=== PATIENT | female | born 1995 | race Caucasian/White ===

== ENCOUNTER 2022-09-22 13:15 | Outpatient (CLI) | payer BC ==
[2022-09-22 14:25] LABS: HCT - HEMATOCRIT 37.3 % (37.0-47.0); HGB - HEMOGLOBIN 12.8 g/dL (12.0-16.0); MEAN CORPUSCULAR HEMOGLOBIN 31.5 pg (27.0-31.0); MEAN CORPUSCULAR HGB CONC 34.3 g/dL (32.0-36.0); MEAN CORPUSCULAR VOLUME 91.9 fL (81.0-99.0); MEAN PLATELET VOLUME 9.7 fL (7.9-10.8); RED BLOOD COUNT 4.06 10^6/uL (4.20-5.40); RED CELL DISTRIBUTION WIDTH 12.5 % (12.0-15.0); WHITE BLOOD COUNT 9.3 x10^3/uL (4.8-10.8)
== END 2022-09-22 13:16 | disposition home or self-care (01) ==
LOC: LAB 13:15
PROVIDERS: ATTEND Obstetrics & Gynecology
DX: Z34.90 Encounter for supervision of normal pregnancy, unspecified, unspecified trimester (principal); Z36.89 Encounter for other specified antenatal screening
CPT/HCPCS: 36415; 82950; 85027

== ENCOUNTER 2022-11-20 08:00 | Outpatient (CLI) | payer BC | END 2022-11-20 23:59 | disposition home or self-care (01) | LOC: LAB.WC 08:00 | PROVIDERS: ATTEND Obstetrics & Gynecology | DX: Z36.85 Encounter for antenatal screening for Streptococcus B (principal) | CPT/HCPCS: 87797 ==

== ENCOUNTER 2022-12-11 19:44 | Inpatient (IN) | payer BC ==
[2022-12-11] MEDS ORDERED: TRANEXAMIC ACID IN NACL 1,000 MG/100 ML BAG IV PRN (19:58)
[2022-12-11] MEDS ORDERED: lidocaine 1% 20 ML MDV ID PRN (19:58)
[2022-12-11] MEDS ORDERED: SODIUM CHLORIDE FLUSH 0.9% 10 ML SYRINGE IVP PRN (19:58)
[2022-12-11] MEDS ORDERED: METHYLERGONOVINE 0.2 MG/ML VIAL IM PRN (19:58)
[2022-12-11] MEDS ORDERED: miSOPROStoL 200 MCG TABLET BC PRN (19:58)
[2022-12-11] MEDS ORDERED: OXYTOCIN 10 UNIT/ML VIAL IM PRN (19:58)
[2022-12-11] MEDS ORDERED: OXYTOCIN/SODIUM CHLORIDE 500 ML IV PRN (19:58)
[2022-12-11] MEDS ORDERED: CARBOPROST TROMETHAMINE 250 MCG/ML AMP IM PRN (19:58)
[2022-12-11] MEDS ORDERED: LACTATED RINGERS 1,000 ML IV SCH (20:00)
--- NOTE | 2022-12-11 20:47 | HISTORY & PHYSICAL EXAMINATION ---
Admit History - : 1 Parity: 0 Risk/History: positive: None Complications This : positive: None - Mother's Labs Mother's Blood Type: positive: O Mother's RH: positive: Positive GBS: positive: Group B Step Negative Rubella Status: positive: Immune - Other Maternal History Other Maternal History: HPI: 27-year-old at 39 weeks 1 day gestation here for induction of labor. She has good movement. Denies loss of fluid. No GARCIA/BV or RUQP. No vaginal bleeding. Denies nausea and vomiting. Denies urinary urgency or dysuria. All other symptoms reviewed and were negative except per HPI. Course Iodine Allergy LMP: 03/12/2022 JONI by LMP:12/17/2022 Initial U/S:06/18/2022 FINAL JONI:12/17/2022 Pre- Weight:137 BMI: 22.19 Blood type O Rh positive Antibody negative CBC: PLT 286 HCT 41.9 HGB 14.5 RUB:immune VZV: HBsAg- negative HepC- negative RPR/AB-EIA:Negative HIV:non reactive PAP:06/06/22 Normal GC/CT:Negative HSV:denies Genetic testing: Negative QUAD 07/04/2022 Covid:X1 2021 Flu:declined FAS: WNL Placenta: Anterior without previa (somewhat thin 1.7cm) Cord: three-vessel cord ADRIANNE: not mentioned EFW:441g 79.95th percentile 50gm OGCT: 120 3HR GTT: TDAP:09/22/2022 Breast Pump:09/22/2022 Antibody screen: 3rd trimester H/H PLT 3rd trimester HIV GBS: Negative Delivery plan: MOD: IOL at 39 weeks Contraception: Plan on Paragard after placental delivery. PMH Benign left breast lump PSH Denies OB History G1, P0 SH Denies tobacco, alcohol, drugs. Former smoker. Family History Mother: Breast cancer, cervical cancer, diabetes, hypertension, lung cancer, ovarian cancer Maternal grandmother: Breast cancer, cervical cancer, hypertension, lung cancer Maternal grandfather: Stroke Father: Hypertension Allergies Iodine Medications vitamins Physical exam: General: Alert, oriented, no acute distress Head: Normal cephalic atraumatic Eyes: PERRLA, extraocular motions intact. Respiratory: Normal rate of respiration. No accessory muscle use, normal respiratory effort. Cardiovascular: Regular rate and rhythm Abdomen: Gravid, nontender, nondistended Extremities: Normal range of motion Neuro: Oriented x3. Normal movements Psych: Appropriate mood and affect. Normal judgment and insight SVE: Checked in clinic yesterday was fingertip, 30%, -3 FHT: 140 beats per baseline, moderate variability, accelerations present, no decelerations. [place]: Quiescent Plan 27-year-old G1, P0 at 39 weeks 1 day gestation here for induction of labor 1. Induction of labor -Admit to L&D for cervical ripening, admit labs, epidural at patient's request. -Cervical ripening with misoprostol 25 mcg PV 2. 39 weeks gestation
[2022-12-11 21:28] LABS: BASOPHILS # (AUTO) 0.1 10^3/uL (0.0-0.1); BASOPHILS % (AUTO) 0.7 %; EOSINOPHILS # (AUTO) 0.1 10^3/uL (0.0-0.7); EOSINOPHILS % (AUTO) 0.9 %; HCT - HEMATOCRIT 34.4 % (37.0-47.0); HGB - HEMOGLOBIN 11.7 g/dL (12.0-16.0); LYMPHOCYTES # (AUTO) 1.5 10^3/uL (1.5-3.5); LYMPHOCYTES % (AUTO) 18.3 %; MEAN CORPUSCULAR HEMOGLOBIN 29.3 pg (27.0-31.0); MEAN PLATELET VOLUME 11.1 fL (7.9-10.8); MONOCYTES # (AUTO) 0.7 10^3/uL (0.0-1.0); MONOCYTES % (AUTO) 8.1 %; NEUTROPHILS # (AUTO) 5.9 10^3/uL (1.5-6.6); NEUTROPHILS % (AUTO) 69.6 %; PLT - PLATELET COUNT 201 10^3/uL (130-450); RED CELL DISTRIBUTION WIDTH 12.6 % (12.0-15.0); WHITE BLOOD COUNT 8.4 x10^3/uL (4.8-10.8)
[2022-12-11] MEDS: miSOPROStoL 100 MCG TABLET VG SCH (21:48)
[2022-12-12] MEDS ORDERED: SODIUM CHLORIDE FLUSH 0.9% 10 ML SYRINGE IVP SCH (01:00)
[2022-12-12] MEDS: miSOPROStoL 100 MCG TABLET VG SCH ×4 (01:52→21:31)
--- NOTE | 2022-12-12 07:37 | PROVIDER PROGRESS NOTE ---
Labor Progress Note - Uterine Monitoring Uterine Monitoring Mode: positive: External toco Contraction Frequency (min/apart): 1-2 Contraction Intensity: positive: Mild to moderate - Monitoring Monitor Mode: positive: External ultrasound Heart Rate Variability: positive: Moderate (6-25 bmp) Accelerations: positive: Present, 15x15 Decelerations: positive: None Strip Review: positive: Category I - Vaginal Exam Dilation (in cm): 2 Effacement (%): 30 Station: -3 - Labor Progress Note Labor Progress Note/Additional Text: Patient maggie about every 1.5 to 2 minutes, 2 close together for additional dose of misoprostol, so the last dose was held. On exam, she changed from fingertip to 2 cm. We will reevaluate cervix after couple of hours to evaluate for continued change on her own. Briefly discussed Rocha balloon, but this often is expelled around 3 cm and may not stay in very long. And does feel well engaged, so could consider amniotomy if not progressing, although this is somewhat early.
[2022-12-12] MEDS ORDERED: OXYTOCIN/SODIUM CHLORIDE 500 ML IV SCH (10:00)
--- NOTE | 2022-12-12 21:12 | PROVIDER PROGRESS NOTE ---
Labor Progress Note - Uterine Monitoring Uterine Monitoring Mode: positive: External toco Contraction Frequency (min/apart): 4 Contraction Intensity: positive: Mild to moderate Uterine Resting Tone: positive: Soft - Monitoring Monitor Mode: positive: External ultrasound Heart Rate Baseline: 130 Heart Rate Variability: positive: Moderate (6-25 bmp) Accelerations: positive: Present, 15x15 Decelerations: positive: None Strip Review: positive: Category I - Vaginal Exam Dilation (in cm): 4 Effacement (%): 100 Station: -2 Cervical Position: Midposition - Labor Progress Note Labor Progress Note/Additional Text: 27yo at 39.2w admitted for elective IOL - Received 2 doses misoprostol 25mcg bc - Pitocin now at 10mu/m, continue to increase by2 every 30m as cervix has not changed - Cat 1, continue to monitor
[2022-12-12] MEDS ORDERED: ROPIVACAINE 0.2% 200 MG/100 ML BAG EP ONE (23:27)
[2022-12-12] MEDS ORDERED: LIDOCAINE-PF 2% 10 ML AMP SUBQ ONE (23:29)
[2022-12-13] MEDS ORDERED: NALOXONE 0.4 MG/ML VIAL IVP PRN ×2 (00:09→08:26)
[2022-12-13] MEDS ORDERED: ONDANSETRON 4 MG/2 ML VIAL IVP PRN ×3 (00:09→08:25)
[2022-12-13] MEDS ORDERED: METOCLOPRAMIDE 10 MG/2 ML VIAL IVP PRN ×2 (00:09→08:26)
[2022-12-13] MEDS ORDERED: ROPIVACAINE 0.2% 200 MG/100 ML BAG EP PRN ×2 (00:09→08:26)
[2022-12-13] MEDS ORDERED: diphenhydrAMINE INJ 50 MG/ML VIAL IVP PRN ×2 (00:09→08:26)
[2022-12-13] MEDS ORDERED: ePHEDrine 50 MG/ML VIAL IVP PRN ×2 (00:09→08:26)
[2022-12-13] MEDS ORDERED: NALBUPHINE 10 MG/ML AMP IVP PRN ×2 (00:09→08:26)
--- NOTE | 2022-12-13 00:13 | ANESTHESIA ---
Pre-Anesthesia VS, & Labs - Diagnosis labor induction - Procedure epidural for labor Vital Signs: Temp Pulse Resp BP Pulse Ox O2 Flow Rate 36.6 C 79 20 111/80 99 12/12/22 09:00 12/12/22 09:00 12/12/22 09:00 12/12/22 09:00 12/12/22 05:00 Height: 5 ft 6 in Weight (kg): 86.183 kg Body Mass Index: 30.7 BMI Classification: Obese - NPO Other (clears) - Is Patient ?: Yes - Lab Results Current Lab Results: Laboratory Tests 12/11/22 22:46: Blood Type Recheck O POSITIVE 12/11/22 20:55: Blood Type O POSITIVE, Antibody Screen NEGATIVE 12/11/22 20:55: WBC 8.4, RBC 4.00 L, Hgb 11.7 L, Hct 34.4 L, MCV 86.0, MCH 29.3, MCHC 34.0, RDW 12.6, Plt Count 201, MPV 11.1 H, Neut # (Auto) 5.9, Lymph # (Auto) 1.5, [place] # (Auto) 0.7, Eos # (Auto) 0.1, Baso # (Auto) 0.1, Absolute Nucleated RBC 0.00, Nucleated RBC % 0.0 Fish Bones: 12/11/22 20:55 Home Medications and Allergies Active Medications Carboprost Tromethamine (Carboprost Tromethamine 250 Mcg/Ml Amp) 250 mcg IM Q15M PRN PRN Reason: Step 4: Hemorrhage protocol Stop: 12/16/22 20:01 Oxytocin/Sodium Chloride (Pitocin/Sodium Chloride) 500 mls @ 999 mls/hr IV PRN PRN; Protocol PRN Reason: POST- HEMORR PREVENTION Stop: 12/16/22 20:01 Tranexamic Acid (Tranexamic 1,000 Mg/100ml-Nacl) 1,000 mg in 100 mls @ 600 mls/hr IV .ONCE PRN PRN Reason: EBL >1200mL and within 3hr Stop: 12/16/22 20:01 Lactated Ringer's (Lr) 1,000 mls @ 100 mls/hr IV .Q10H TATUM Last Infusion: 12/11/22 22:10 Dose: 0 mls/hr Oxytocin/Sodium Chloride (Pitocin/Sodium Chloride) 500 mls @ 2 mls/hr IV TITR TATUM; Protocol Last Titration: 12/12/22 21:13 Dose: 12 milliunit/min, 12 mls/hr Lidocaine HCl (Lidocaine 1% 20 Ml Mdv) 20 ml ID .ONCE PRN PRN Reason: PERINEAL REPAIR Stop: 12/16/22 20:01 Methylergonovine Maleate (Methylergonovine 0.2 Mg/Ml Vial) 0.2 mg IM .ONCE PRN PRN Reason: Step 2: Hemorrhage protocol Stop: 12/16/22 20:01 Misoprostol (Misoprostol 200 Mcg Tablet) 800 mcg BC .ONCE PRN PRN Reason: Step 3: Hemorrhage protocol Stop: 12/16/22 20:01 Misoprostol (Misoprostol 100 Mcg Tablet) 25 mcg VG Q4HR [facility] Last Admin: 12/12/22 21:31 Dose: Not Given Ondansetron HCl (Ondansetron 4 Mg/2 Ml Vial) 4 mg IVP Q6H PRN PRN Reason: Nausea / Vomiting Oxytocin (Oxytocin 10 Unit/Ml Vial) 10 unit IM .ONCE PRN PRN Reason: Step one: If no IV access Stop: 12/16/22 20:01 Sodium Chloride (Sodium Chloride Flush 0.9% 10 Ml Syringe) 10 ml IVP 0100,0900,1700 TATUM Sodium Chloride (Sodium Chloride Flush 0.9% 10 Ml Syringe) 10 ml IVP PRN PRN PRN Reason: NEEDED PER PROVIDER ORDERS Allergies/Adverse Reactions: Allergies Allergy/AdvReac Type Severity Reaction Status Date / Time iodine Allergy Hives Verified 12/11/22 22:12 Anes History & Medical History - Anesthetic History Anesthesia Complications: reports: No previous complications - Medical History Cardiovascular: reports: None Pulmonary: reports: None Smoking Status: Former smoker History of Cancer?: No - Obstetrical History : 1 Parity: 0 Events: reports: None Complications: reports: None Exam General: Alert, Oriented x3 Dental: WNL Neck Mobility: Normal Mallampati classification: II Thyromental Distance: greater than 6 cm Respiratory: Lungs clear Cardiovascular: Regular rate Plan Anesthesia Type: Epidural Consent for Procedure(s) Verified and Reviewed: Yes Code Status: Attempt Resuscitation ASA classification: 2-Mild systemic disease Is this case an emergency?: No
[2022-12-13] MEDS: ONDANSETRON 4 MG/2 ML VIAL IVP PRN ×2 (00:14→08:22)
[2022-12-13] MEDS: miSOPROStoL 100 MCG TABLET VG SCH (05:33)
[2022-12-13] MEDS ORDERED: OXYTOCIN/SODIUM CHLORIDE 500 ML IV PRN (08:23)
[2022-12-13] MEDS ORDERED: SODIUM CHLORIDE FLUSH 0.9% 10 ML SYRINGE IVP PRN (08:23)
[2022-12-13] MEDS ORDERED: OXYTOCIN 10 UNIT/ML VIAL IM PRN (08:23)
[2022-12-13] MEDS ORDERED: CARBOPROST TROMETHAMINE 250 MCG/ML AMP IM PRN (08:24)
[2022-12-13] MEDS ORDERED: lidocaine 1% 20 ML MDV ID PRN (08:24)
[2022-12-13] MEDS ORDERED: TRANEXAMIC ACID IN NACL 1,000 MG/100 ML BAG IV PRN (08:24)
[2022-12-13] MEDS ORDERED: miSOPROStoL 200 MCG TABLET BC PRN (08:24)
[2022-12-13] MEDS ORDERED: METHYLERGONOVINE 0.2 MG/ML VIAL IM PRN (08:24)
[2022-12-13] MEDS ORDERED: ONDANSETRON 4 MG/2 ML VIAL ONE (08:25)
[2022-12-13] MEDS ORDERED: TRANEXAMIC ACID IN NACL 1,000 MG/100 ML BAG IV ONE (08:28)
[2022-12-13] MEDS ORDERED: CARBOPROST TROMETHAMINE 250 MCG/ML AMP IM ONE (08:28)
[2022-12-13] MEDS ORDERED: METHYLERGONOVINE 0.2 MG/ML VIAL ONE (08:28)
[2022-12-13] MEDS ORDERED: LACTATED RINGERS 1,000 ML ONE (08:30)
[2022-12-13] MEDS ORDERED: LACTATED RINGERS 1,000 ML IV SCH ×2 (09:00→12:00)
[2022-12-13] MEDS ORDERED: OXYTOCIN/SODIUM CHLORIDE 500 ML IV SCH (09:00)
[2022-12-13] MEDS ORDERED: SODIUM CHLORIDE FLUSH 0.9% 10 ML SYRINGE IVP SCH (09:00)
[2022-12-13] MEDS ORDERED: miSOPROStoL 100 MCG TABLET VG SCH (09:00)
[2022-12-13] MEDS ORDERED: HYDROCORTISONE 1% CREAM 28 GM TUBE PR PRN (11:23)
[2022-12-13] MEDS ORDERED: WITCH HAZEL/GLYCERIN 1 PAD TOP PRN (11:23)
--- NOTE | 2022-12-13 11:36 | DELIVERY NOTE ---
Delivery Note - Labor Labor: positive: Augmented by oxytocin - Cervical Ripening Method Cervical Ripening Method: positive: Misoprostil (25mcg x2 VG) - Presentation Presentation: positive: Vertex, LOIDA - right occiput anterior - Nuchal Cord Nuchal Cord: positive: Present (x1, reduced after delivery) - Anesthetic Anesthetic Type: - Amniotic Fluid Description Amniotic Fluid Description: positive: Clear - Vacuum Use Type of Vacuum Cup: positive: Cup: Jim Type (Kiwi Omnicup), Cup: Rigid Vacuum Extraction: positive: Successful Number of pop-offs: 0 - Episiotomy Type Episiotomy Type: positive: None - Laceration Laceration: positive: 2nd degree (right vaginal) - Suture Suture Type: positive: Vicryl Suture Size: positive: 3-0 - Delivery Outcome Delivery Outcome: positive: Livebirth - : positive: Placed in direct skin contact with mother, Bulb syringe, Stimulated, Warmed, [place] used sex: positive: Male - Cord Cord: positive: 3 vessels - Placenta Placenta: positive: Intact, Spontaneous - Estimated Blood Loss Estimated Blood Loss (in cc): 200 - Delivery Comments (Free Text/Narrative) Delivery Comments (Free Text/Narrative): /+2 and maternal pushing with good efforts. Epidural in place. Pushing more than 2 hours and was exhausted from induction process, lack of sleep, and pushing. Head +3 and with pushing. Discussed vacuum assistance and risks and she consented. Vacuum placed on flexion point with care to avoid maternal tissues. Pressure applied and gentle traction with next contraction. Awaited next contraction and delivery of head accomplished with two pulls and co ntractions. No detachments. Vacuum applied for 10 minutes. LOIDA. Shoulders and body then delivered. Nuchal cord x1 reduced. Baby boy placed on mother's abdomen. Pediatrics present. Delayed cord clamping. Fundus firm. Vagina and perineum inspected- second degree vaginal laceration right side repaired with 3- 0 Vicryl in usual fashion. Hemostasis. QBL 200cc. Family bonding at bedside.
[2022-12-13] MEDS: IBUPROFEN 800 MG TABLET PO SCH ×2 (14:44→21:07)
[2022-12-13] MEDS: DOCUSATE SODIUM 100 MG CAPSULE PO SCH (21:08)
[2022-12-13] MEDS: ACETAMINOPHEN 500 MG TABLET PO SCH (21:08)
[2022-12-14] MEDS: IBUPROFEN 800 MG TABLET PO SCH (04:28)
[2022-12-14] MEDS: DOCUSATE SODIUM 100 MG CAPSULE PO SCH (07:57)
[2022-12-14] MEDS: ACETAMINOPHEN 500 MG TABLET PO SCH (07:57)
[2022-12-14 09:49] VITALS: BP 99/61
--- NOTE | 2022-12-14 11:55 | Discharge Plan ---
Discharge Plan Problem Reviewed?: Yes Disposition: Home, Self Care Condition: Good Diet: Regular Activity Restrictions: Activity as Tolerated Shower Restrictions: No Weight Bearing: Full Weight Instruction Topics: Vaginal After Additional Instructions or Follow Up instructions: Follow up with 12/24/22 8306. You may reschedule 2-6 weeks if preferred. No Smoking: If you smoke, Please STOP! Call for help. Follow-up with: Roselia Mg DO [Primary Care Provider] -
--- NOTE | 2022-12-14 13:40 | Labor Flowsheet ---
Labor Flowsheet Datetime Report Generated by CPN: 12/14/2022 13:40 Datetime: 12/14/2022 07:57 VITAL SIGNS NBP Sys/Wendi/Mean (mmHg): 99 : 61 : 70 Pulse: 68 Datetime: 12/14/2022 04:35 SpO2 (%): 99 Datetime: 12/13/2022 16:01 Stage of : Datetime: 12/13/2022 11:01 LaborFlag: Labor Datetime: 12/13/2022 10:54 Vacuum: Off Datetime: 12/13/2022 10:47 Stage 2 Comments: First pull. No pop offs Datetime: 12/13/2022 10:45 Station Vacuum/Forceps Applied: +3 Datetime: 12/13/2022 10:40 STAGE 2 Pushing: Pt States too Tired to Push Datetime: 12/13/2022 10:32 MEDICATIONS Pitocin (milliunits): Increased to @ 22 Datetime: 12/13/2022 10:30 UTERINE ACTIVITY Monitor Mode: External Frequency (min): 2-7 Quality: Mild Duration (sec): 40-80 Pattern: Normal: <= 5 Contractions in 10 Minutes Resting Tone (Palpate): Relaxed ASSESSMENT A Monitor Mode: External US FHR Baseline Rate : 125 FHR Baseline Changes: No Baseline Change Variability: Moderate 6-25 bpm Accelerations: 15X15 Decelerations: None Category: Category I Pushing Position: Pushing with Contractions Pushing Progress: Descent with Pushing Datetime: 12/13/2022 10:00 Contraction Comments: approx. difficult to determine due to maternal habitous. difficult to palpate Datetime: 12/13/2022 08:10 Provider Reviewed Strip: Yes COMMUNICATION Communication: RN at Bedside; Provider at Bedside Communication Comments: Saurav at bedside Datetime: 12/13/2022 08:08 VAGINAL EXAM Dilatation (cm): 10.0 Effacement (%): 100 Station: 0 Exam by: Dr. Richardsoncarlos a Datetime: 12/13/2022 07:00 Pitocin Checklist: At Least 1 Acceleration of 15 bpm x 15 Seconds in 30 Minutes or Adequate Variabi lity; No More than 1 Late Deceleration Occurred in Past 30 Minutes; No More than 2 Variable Decelerat ions > 60 Seconds in Duration and decreasing >60 bpm in 30 minutes; No More than 5 Uterine Contractio ns in 10 Minutes for any 20 Minute Interval; Uterus Palpates Soft between Contractions Datetime: 12/13/2022 06:08 Patient Position/Activity: High Fowlers Datetime: 12/13/2022 04:01 Temperature (C): 36.9 Datetime: 12/13/2022 03:50 MATERNAL ASSESSMENT Nausea/Vomiting: Present Datetime: 12/13/2022 03:01 Respirations: 17 Datetime: 12/13/2022 02:30 Monitor Interventions for UA: [place] Adjusted I/O Interventions: Rocha Cath Inserted Datetime: 12/12/2022 23:42 Epidural Procedure: Test Dose Datetime: 12/12/2022 23:30 Comments: occasional maternal HR tracing Datetime: 12/12/2022 23:27 ANESTHESIA Anesthesia Plans: Epidural Epidural Positioning: Sitting Datetime: 12/12/2022 23:25 Provider Notified (Name): M. Aube, MEDICAL SURGERY NURSE Datetime: 12/12/2022 23:02 PATIENT CARE IV/Blood Work: IV Bolus Started; IV Bolus Given ml @ 999 Datetime: 12/12/2022 22:55 Anesthesia Comments: Pt requesting epidural Datetime: 12/12/2022 22:50 Membrane Status: Ruptured Membranes Ruptured Date/Time: 12/13/2022 22:50 Membranes Rupture Method: Artificial Amniotic Fluid Color: Clear Amniotic Fluid Amount: Moderate Amniotic Fluid Odor: None Vaginal Bleeding: Normal Show Datetime: 12/12/2022 22:38 Vaginal Exam Comments: no change Datetime: 12/12/2022 20:52 Patient Care Comments: peanut ball Datetime: 12/12/2022 15:06 Cervix, Consistency: Soft Cervix, Position: Midposition Datetime: 12/12/2022 06:50 Notification Reason: Status Update Datetime: 12/12/2022 05:44 Strip Reviewed by: H. Dave, RN Datetime: 12/12/2022 04:42 Actions for Decelerations: Blood Pressure; Other Datetime: 12/12/2022 02:55 PAIN Pain Scale: 0 Datetime: 12/12/2022 01:51 Cervical Ripening Agents: Cytotec @ Datetime: 12/12/2022 01:05 Temperature Route: Oral Datetime: 12/11/2022 20:06 TEACHING Plan of Care: Plan of Care Discussed; Induction Labor/Induction: Cervical Ripening Pain Management: Epidural Medications: Cervical Ripening; Pitocin
--- NOTE | 2022-12-15 10:51 | DISCHARGE SUMMARY ---
Discharge Summary Admit Date: 12/11/22 Discharge Date: 12/14/22 Discharging Provider: Roselia Mg DO Code Status: Attempt Resuscitation Condition at Discharge: Good Discharge Disposition: 01 Home, Self Care Discharge Facility Name: [facility] - DIAGNOSES Admission Diagnoses: 27yo admitted 12/11/22 for elective IOL at 39.1w. Uncomplicated care at [facility]. - HPI History of Present Illness: 27yo admitted 12/11/22 for elective IOL at 39.1w. Uncomplicated care at [facility]. - HOSPITAL COURSE Hospital Course: 27yo admitted 12/11/22 for elective IOL at 39.1w. Uncomplicated care at [facility]. She received two doses of 25mcg PV misoprostol. Pitocin started. AROM, clear. Received epidural. Progressed to 10cm. complicated by VAVD which was successful. Second degree vaginal laceration repaired in usual fashion. care uncomplicated and recovering well. Minimal lochia. She is not , some pumping but she will use formula. Reviewed breast care for cessation. care and depression reviewed. Good support from . Follow up in as scheduled. - ALLERGIES Allergies/Adverse Reactions: Allergies Allergy/AdvReac Type Severity Reaction Status Date / Time iodine Allergy Hives Verified 12/11/22 22:12 - PHYSICAL EXAM AT DISCHARGE General Appearance: positive: No acute distress Eyes Bilateral: positive: EOMI Respiratory: positive: No respiratory distress Abdomen: positive: Non-tender Skin: positive: Color nml Extremities: positive: Non-tender Neurologic/Psychiatric: positive: Oriented x3 - LABS Result Diagrams: 12/11/22 20:55 - QUALITY (Female Hip Fx Only) Was patient sent home on osteoporosis medication?: No - FOLLOW UP Follow Up: 2 weeks - TIME SPENT Time Spent in Discharge (Minutes): 25
== END 2022-12-14 13:15 | disposition home or self-care (01) | DRG 807 ==
LOC: WFO 19:44 → FBP 19:47 → WFO 19:57 → UNDOADMOB 19:58 → FBP 19:58 → UNDOADMOB 12-12 10:05 → FBP 12-12 10:05
PROVIDERS: ADMIT Obstetrics & Gynecology; ATTEND Obstetrics & Gynecology
PROC: 10907ZC Drainage of Amniotic Fluid, Therapeutic from Products of Conception, Via Natural or Artificial Opening (ICD-10-PCS; principal; 2022-12-13)
PROC: 10D07Z6 Extraction of Products of Conception, Vacuum, Via Natural or Artificial Opening (ICD-10-PCS; 2022-12-13)
PROC: 0KQM0ZZ Repair Perineum Muscle, Open Approach (ICD-10-PCS; 2022-12-13)
DX: O99.214 Obesity complicating childbirth (principal); Z37.0 Single live birth; O75.81 Maternal exhaustion complicating labor and delivery; O70.1 Second degree perineal laceration during delivery; O69.81X0 Labor and delivery complicated by cord around neck, without compression, not applicable or unspecified; Z3A.39 39 weeks gestation of pregnancy; O76 Abnormality in fetal heart rate and rhythm complicating labor and delivery; Z87.891 Personal history of nicotine dependence
CPT/HCPCS: 36415; 85025; 86850; 86900; 86901; A9270; G0378; J7120